=== PATIENT | male | born 1985 | race Caucasian/White ===

== ENCOUNTER 2020-04-25 07:40 | Outpatient (REF) | payer OTHER, SELFPAY | END 2020-04-25 07:41 | disposition home or self-care (01) | LOC: HO.LAB 07:40 | PROVIDERS: Visit Provider Internal Medicine | DX: Z20.828 Contact with and (suspected) exposure to other viral communicable diseases (principal) | CPT/HCPCS: C9803; U0003 ==

== ENCOUNTER 2020-05-23 08:22 | Outpatient (REF) | payer OTHER, SELFPAY | END 2020-05-23 08:23 | disposition home or self-care (01) | LOC: HO.LAB 08:22 | PROVIDERS: Visit Provider Internal Medicine | DX: Z20.822 Contact with and (suspected) exposure to COVID-19 (principal) | CPT/HCPCS: 36415; C9803; U0003 ==

== ENCOUNTER 2020-07-11 08:05 | Outpatient (REF) | payer OTHER, SELFPAY | END 2020-07-11 08:06 | disposition home or self-care (01) | LOC: HO.LAB 08:05 | PROVIDERS: Visit Provider Internal Medicine | DX: Z20.822 Contact with and (suspected) exposure to COVID-19 (principal) | CPT/HCPCS: 36415; C9803; U0003; U0005 ==

== ENCOUNTER 2022-01-24 10:27 | Outpatient (REF) | payer OTHER, SELFPAY ==
[2022-01-24 11:15] LABS: COVID-19 Test Negative (Negative)
== END 2022-01-24 10:28 | disposition home or self-care (01) ==
LOC: HO.LAB 10:27
PROVIDERS: Visit Provider Internal Medicine
DX: Z20.822 Contact with and (suspected) exposure to COVID-19 (principal)
CPT/HCPCS: 87635; C9803